=== PATIENT | male | born 1930 | race Caucasian/White ===

== ENCOUNTER → 2017-01-04 | Day surgery (SDC) | payer BC ==
[2016-12-26 12:19] VITALS: Ht 177.8 cm; Wt 90.9 kg
[~2017-01-04] VITALS: Ht 177.8 cm; Wt 90.9 kg
[~2017-01-04] MED LIST: ACET-1222 PO; ASPCH81X PO; BUPIVACAINE 0.25% 2.5MG/ML PF 10 ML VIAL INFIL ONE; CETI10TA10 PO; CHOL100010 PO; FISHOIL PO; GLUC250C5 PO; IBUP-1277 PO; LIDOCAINE HCL 1% MPF 5 ML VIAL ONE; MULTTAB58 PO; TRAV0.00 OPR
--- NOTE | 2017-01-04 14:24 | History & Physical Bridge - [place] ---
H&P Re-Evaluation Bridge Note: I have examined the patient, reviewed the History & Physical and in the interval since the performance of the History & Physical I have noted the following changes of clinical significance: No changes noted
[2017-01-04 14:51] VITALS: BP 159/92; PULSE 73; O2SAT 94
--- NOTE | 2017-01-04 14:58 | Discharge Instructions ---
Discharge Instructions Visit Reason for Visit: Lumbar Facet Arthropathy Discharge Discharge Diagnosis / Problem: low back pain Discharge Goals Goal(s): Decrease discomfort, Improve function Activity Recommendations Activity Limitations: resume your previous activity Anesthesia . Post Anesthesia Instructions: If you have had General Anesthesia or IV Sedation: * Do not drive today. * Resume driving when surgeon permits. * Do not make important decisions or sign legal documents today. * Call surgeon for: 1. Temperature elevations greater than 101 degrees F. 2. Uncontrollable pain. 3. Excessive bleeding. 4. Persistent nausea and vomiting. 5. Medication intolerance (nausea, vomiting or rash). * For nausea and vomiting use only clear liquids such as: tea, soda, bouillon until nausea subsides, then gradually increase diet as tolerated. * If you have any concerns or questions, call your surgeon's office. If physician is unavailable and it is an emergency, call 911 or go to the nearest emergency room. . Diet Recommendations Recommended Home Diet: resume previous diet Procedures Procedures Performed: Left L4-5, L5-S! Medial Branch Blocks Pending Studies Studies pending at discharge: no Medical Emergencies . Who to Call and When: Medical Emergencies: If at any time you feel your situation is an emergency, please call 911 immediately. . Non-Emergent Contact Non-Emergency issues call your: Specialist . . "Provider Documentation" section prepared by Levar Goldstein.
--- NOTE | 2017-01-04 15:14 | OPERATIVE REPORT ---
DATE OF OPERATION: 01/04/2017 PREOPERATIVE DIAGNOSIS: Chronic low back pain, left L4-L5, L5-S1 facet arthropathy. POSTOPERATIVE DIAGNOSIS: Same. PROCEDURE: Left L4-5, L5-S1 medial branch block under fluoroscopic guidance. SURGEON: Dr. Levar Goldstein. INDICATIONS: The patient is an 86-year-old white male who has received medial branch blocks that typically last him a number of years, 4 years from the last one and 3 years prior to that. He presents today with similar pain complaints localizing the left side requesting medial branch blocks to provide him with long lasting relief despite the short acting expected duration of the anesthetic. PHYSICAL EXAMINATION: GENERAL: Pleasant male seated comfortably in no apparent distress. MUSCULOSKELETAL EXAMINATION: Lumbar paraspinal muscles were palpated and noted to be nontender. He had reproduction of pain with palpation of the left lower lumbar facet areas which was worse with extension. CONSENT: Verbal and written consent was obtained from the patient. Risks and benefits were reviewed. Risks include but are not limited to abscess and allergic reaction, he wishes to proceed. PROCEDURE: The patient was taken back in the special procedures [facility] of [facility] where he was maintained in a prone position. Backside was cleansed with Betadine and a dry sterile dressing was applied. Fluoroscope was used to identify the left L4 transverse process junction and the left L5 transverse process junction and the left sacral ala. Overlying skin was anesthetized with 1.5 mL of lidocaine 1% at each site and a 25 gauge 3-1/2 inch needle was directed under fluoroscopic guidance into each site. He then underwent injection with bupivacaine 0.25% 1 mL at each site. This was well tolerated. DISPOSITION: 1. The patient is taken out into the discharge recovery area where he will be discharged home once discharge criteria have been met. 2. Follow up in the [facility] office in 2-4 weeks. I attest to the content of the Intraoperative Record and any orders documented therein. Any exceptio ns are noted below.
== END | disposition home or self-care (01) ==
LOC: X.SURG 13:52
PROVIDERS: ATTEND Physical Medicine & Rehabilitation
DX: M47.817 Spondylosis without myelopathy or radiculopathy, lumbosacral region (principal); G89.29 Other chronic pain

== ENCOUNTER → 2017-03-15 | Outpatient (CLI) | payer BC ==
[~2017-03-15] MED LIST changes: -BUPIVACAINE 0.25% 2.5MG/ML PF 10 ML VIAL INFIL ONE; +GLUCTAB7 PO; -LIDOCAINE HCL 1% MPF 5 ML VIAL ONE; +LOSA1TAB PO; +OMEG10007 PO
[2017-03-15 09:41] LABS: BLOOD UREA NITROGEN 24 mg/dl (7-18); BUN/CREATININE RATIO 21.8 (10-20)
[2017-03-15 09:45] LABS: PROSTATE SPECIFIC ANTIGEN 0.011 ng/ml (0.000-4.000)
== END | disposition home or self-care (01) ==
LOC: C.LAB 08:26
PROVIDERS: ATTEND Urology
DX: C61 Malignant neoplasm of prostate (principal)

== ENCOUNTER → 2017-03-19 | Outpatient (CLI) | payer BC ==
--- NOTE | 2017-03-19 14:20 | DIAGNOSTIC IMAGING REPORT ---
RENAL ULTRASOUND HISTORY: N28.1 Cyst of kidney, [id number] COMPARISON: Renal ultrasound 03/02/2015. FINDINGS: Right kidney: 13.0 cm. No hydronephrosis. Moderate cortical thinning. Multiple cysts with the largest measuring 4.4 cm. Left kidney: 12.2 cm. No hydronephrosis. Moderate cortical thinning. A 2.1 cm parapelvic cyst. Bladder: No bladder wall thickening. The bilateral ureteral jets were identified. IMPRESSION: No hydronephrosis. Bilateral renal cysts and moderate cortical thinning are again noted. Electronically signed by: Lance Mata M.D. 03/19/2017 2:19 PM Dictated Date/Time: 03/19/2017 2:17 PM
== END | disposition home or self-care (01) ==
LOC: C.ULTR 13:21
PROVIDERS: ATTEND Urology
DX: N20.0 Calculus of kidney (principal); N28.1 Cyst of kidney, acquired

== ENCOUNTER → 2017-07-24 | Outpatient (CLI) | payer BC ==
[~2017-07-24] MED LIST changes: -GLUCTAB7 PO; -LOSA1TAB PO; -OMEG10007 PO
[2017-07-24 16:14] LABS: PATIENT HEIGHT 177.8 cm
[2017-07-24 17:31] LABS: MEAN CELL VOLUME 94.1 fL (80-100); MEAN CORPUSCULAR HEMOGLOBIN 32.5 pg (25-34); MEAN CORPUSCULAR HGB CONC 34.5 g/dl (32-36); MEAN PLATELET VOLUME 10.7 fL (7.4-10.4); PLATELET COUNT 261 K/uL (130-400); RED BLOOD COUNT 4.25 M/uL (4.7-6.1); WHITE BLOOD COUNT 7.34 K/uL (4.8-10.8)
[2017-07-24 17:33] LABS: MANUAL MICROSCOPIC REQUIRED? NO; REVIEW REQ? NO; URINE APPEARANCE CLEAR (CLEAR); URINE BILIRUBIN NEG (NEG); URINE COLOR YELLOW; URINE EPITHELIAL CELL AUTO 0-5 /lpf (0-5); URINE NITRITE NEG (NEG); URINE PH 6.5 (4.5-7.5); URINE SPECIFIC GRAVITY 1.018 (1.000-1.030); UROBILINOGEN NEG (NEG)
[2017-07-24 17:56] LABS: BLOOD UREA NITROGEN 23 mg/dl (7-18); BUN/CREATININE RATIO 22.8 (10-20); CALCIUM 9.7 mg/dl (8.5-10.1); CARBON DIOXIDE 28 mmol/L (21-32); CHLORIDE 106 mmol/L (98-107); GLUCOSE 88 mg/dl (70-99); POTASSIUM 4.2 mmol/L (3.5-5.1); SODIUM 140 mmol/L (136-145)
[2017-07-24 17:57] LABS: URINE PROTIEN/CREAT RATIO 0.2 (0-0.2); URINE TOTAL PROTEIN 15.7 mg/dl (0-11.9)
[2017-07-24 18:00] LABS: ALB/GLOB RATIO 1.2 (0.9-2); ALKALINE PHOSPHATASE 69 U/L (45-117); ALT/SGPT 23 U/L (12-78); AST/SGOT 18 U/L (15-37)
[2017-07-24 18:09] LABS: URINE TOTAL PROTEIN 7.5 mg/dl (0-11.9)
[2017-07-24 19:35] LABS: CREATININE 1.1 mg/dl (0.6-1.4); URINE TOTAL PROTEIN CALC 170.6 mg/24 hr (0-149.1)
--- NOTE | 2017-08-01 09:44 | CODING QUERY MEDICAL NECESSITY ---
CQSUPPORTING DIAGNOSIS NEEDED A supporting diagnosis is required for the test/procedure performed on this patient in order for us to be reimbursed by the patient's insurance. Please provide a supporting diagnosis for the following test/procedure listed below next to the test name along with your signature. *If there is no additional diagnosis for this patient that would support the following test/procedure please document that below next to the test/procedure. Test(s)/Procedure(s) that require a supporting diagnosis: DOS 07/24/17 VITAMIN D TEST Provider Signature: Date: Thank you Fifi [facility] Once completed, please kindly fax back to [phone] For questions please call [phone]
== END | disposition home or self-care (01) ==
LOC: C.LAB1850 15:49
PROVIDERS: ATTEND Internal Medicine Nephrology
DX: N28.1 Cyst of kidney, acquired (principal); N20.0 Calculus of kidney; R80.9 Proteinuria, unspecified; N18.9 Chronic kidney disease, unspecified